=== PATIENT | female | born 1965 | race African-American/Black ===

== ENCOUNTER 2017-01-17 19:02 | Observation (INO) | payer BC ==
[2017-01-17] MEDS ORDERED: ASPIRIN 81 MG CHEWTAB ONE (19:19)
[2017-01-17] MEDS ORDERED: ASPIRIN 81 MG CHEWTAB PO ONE (19:22)
--- NOTE | 2017-01-17 19:40 | DR.GENAD ---
HPI - PCP Primary Care Physician: MARTY - HPI Comment HPI Comment: PAIN SUBSTERNAL PRESSURE NON RADIATING ASSOCIATED WITH SOB AND WEAKNESS WITH NAUSEA. INITIALLY INTERMITTENT PAIN. CONSTANT TODAY. OLD S/L NITROGLYCERINE AT HOME DID NOT HELP PAIN. HISTORY CAD. - Complaint/Symptoms Chief Complaint Doctors Comments: CHEST PAIN, SOB AND ELEVATED BP TIMES 2 DAYS. Chief Complaint:: CHEST PAIN AND SOB FOR 2 DAYS Self Treatment fo Chief Complaint: NITROGLYCERIN TABLET THIS MORNING 1130AM NO RELIEF - Nurses notes reviewed Nurses Notes Review: Yes - Source History Provided: Patient - Mode of Arrival Mode of Arrival: Ambulatory - Timing Onset of Chief Complaint: 01/16/17 Came on: Suddenly - Duration Duration: Intermittent Duration: Days - Severity Severity: Moderate PMH - PMH Past Medical History: Yes Past Medical History: Anxiety, Depression, Dyslipidemia, Hypertension, Seizures , Sleep Apnea Past Medical History Comment: GROWTH ON THYROID Past Surgical History: Yes Surgical History: Hysterectomy, Ortho Surgery - Family History History of Family Medical Conditions: Yes Family Medical History: Diabetes Mellitus, Cancer, Coronary Artery Disease, Hypertension - Social History Does patient currently use any type of tobacco product: No Have you used tobacco products in the last 12 months: No Type of Tobacco Use: Cigarettes How many years tobacco product used: 2 Does any household member use tobacco: No Alcohol Use: None Do you use any recreational Drugs:: No Lives With: Spouse Lives Where: Home - infectious screening In the last 2 months have you had wt loss of >10#?: NO Have you had fever, night sweats or hemotysis?: No Have you traveled outside the country in the last 6 months?: No Isolation: Standard ROS - Review of Systems Constitutional: Weakness, Fatigue. negative: Chills, Fever Eyes: No Symptoms Reported. negative: Eye Pain, Discharge ENTM: Nose Congestion. negative: Ear Pain, Nose Discharge, Throat Pain Respiratoy: Non-Productive Cough, Short of Breath. negative: Wheezing, Hemoptysis Cardiovascular: Chest Pain, Edema (ANKLES) Gastrointestinal/Abdominal: Nausea. negative: Abdominal Pain, Constipation, Diarrhea, Vomiting Genitourinary: No Symptoms Reported. negative: Dysuria, Frequency, Hematuria Neurological: Weakness, Dizziness. negative: Headache Musculoskeletal: Back Pain, Muscle Pain, Back Integumentary: No Symptoms Reported Hematologic/Lymphatic: No Symptoms Reported Endocrine: No Symptoms Reported All Other Systems: Reviewed and Negative PE - Vital Signs Vitals: Temperature 98.2 F Pulse Rate [Right Brachial] 62 Pulse Rate 85 Respiratory Rate 20 Blood Pressure [Right Arm] 239/112 Blood Pressure [Left Arm] 237/112 Blood Pressure 212/114 O2 Sat by Pulse Oximetry 98 - General Limitations: No Limitations General Appearance: Alert - Head Head Exam: Normal Inspection - Eyes Eye exam: Normal Appearance - ENT ENT Exam: Normal External Ear Exam External Ear Exam: Normal External Inspection TM/Canal Exam: Bilateral Normal Nose Exam: Normal Nose Exam Mouth Exam: Normal Inspection Throat Exam: Normal Inspection - Neck Neck Exam: Trachea Midline. negative: Tenderness, Meningismus, Lymphadenopathy - Chest Chest Inspection: Symmetric Chest Wall Rise - Respiratory Respiratory Exam: negative: Chest Wall Tenderness Respiratory Exam: Bilateral Rhonchi, Lower Rhonchi - Cardiovascular Cardiovascular Exam: Regular Rate, Normal Rhythm, Normal Heart Sounds - Abdominal Exam Abdominal Exam: Normal Bowel Sounds, Soft. negative: Tenderness - Extremities Extremities Exam: Edema (ANKLE) - Back Back Exam: Normal Inspection - Neurologic Neurological Exam: Alert, Oriented X3 - Psychiatric Psychiatric Exam: Anxious - Skin Skin Exam: Normal Color MDM - Additional Information Additional Information Obtained From: Family - Differential Diagnosis Differential Diagnosis: CHEST PAIN, DYSPNEA, CHF, NE, UNCONTROL HTN. Course - Treatment Treatment: SEE ORDERS. MEDS PER ORDERS. PAIN IMPROVE. - Reevaluation 1st: Improved - Consultation Consultation Comments: DISCUSS PATIENT WITH DR. DONALD. HE WILL ADMIT PATIENT. - Education/Counseling Education/Counseling: Patient, Family, Education Educated On: Treatment, Diagnosis ROR - Labs Reviewed Laboratory Results Reviewed?: Yes Result Diagrams: 01/18/17 05:46 01/18/17 05:46 Laboratory: WBC 9.1 X10^3/uL (3.6-10.0) 01/17/17 19:35 RBC 5.33 X10^6/uL (3.5-5.4) 01/17/17 19:35 Hgb 13.3 g/dL (12.0-16.0) 01/17/17 19:35 Hct 40.5 % (36.0-47.0) 01/17/17 19:35 MCV 75.9 fL (80.0-100.0) L 01/17/17 19:35 MCH 25.0 pg (27.0-34.0) L 01/17/17 19:35 MCHC 32.9 g/dL (33.0-35.0) L 01/17/17 19:35 RDW 14.2 % (11.6-16.5) 01/17/17 19:35 Plt Count 199 X10^3/uL (150.0-450.0) 01/17/17 19:35 Plt Count Comment Adequate (ADEQUATE) 01/17/17 19:35 MPV 9.9 fL (7.4-11.0) 01/17/17 19:35 Neut % 46.4 % (42.0-75.0) 01/17/17 19: Lymph % 41.5 % (21.0-51.0) 01/17/17 19:35 [place] % 8.4 % (0.0-13.0) 01/17/17 19:35 Eos % 2.9 % (0.9-2.9) 01/17/17 19:35 Baso % 0.8 % (0.2-1.0) 01/17/17 19:35 Neut # 4.2 x10^3/uL (2.2-4.8) 01/17/17 19:35 Lymph # 3.8 X10^3/uL (1.3-2.9) H 01/17/17 19:35 [place] # 0.8 x10^3/uL (0.3-0.8) 01/17/17 19:35 Eos # 0.3 x10^3/uL (0.0-0.2) H 01/17/17 19:35 Baso # 0.1 X10^3/uL (0.0-0.1) 01/17/17 19:35 Absolute Nucleated RBC 0.1 /100WBC 01/17/17 19:35 Plt Morphology Comment Normal (NORMAL) 01/17/17 19:35 RBC Morphology Abnormal (NORMAL) A 01/17/17 19:35 Hypochromasia Slight A 01/17/17 19:35 D-Dimer 142 ng/mL (0-400) 01/17/17 19:35 Sodium 143 mmol/L (136-145) 01/17/17 19:35 Corrected Sodium TNP 01/17/17 19:35 Potassium 3.5 mmol/L (3.5-5.1) 04/11/17 19:35 Chloride 106 mmol/L (98-107) 01/17/17 19:35 Carbon Dioxide 27.7 mmol/L (21-32) 01/17/17 19:35 BUN 12 mg/dL (7-18) 01/17/17 19:35 Creatinine 1.01 mg/dL (0.55-1.02) 01/17/17 19:35 Est GFR (MDRD) Af Amer > 60 (>60) 01/17/17 19:35 Est GFR (MDRD) Non-Af > 60 (>60) 01/17/17 19:35 Glucose 108 mg/dL (65-99) H 01/17/17 19:35 Calcium 9.5 mg/dL (8.5-10.1) 01/17/17 19:35 Corrected Calcium TNP 01/17/17 19:35 Total Bilirubin 0.50 mg/dL (0.2-1.0) 01/17/17 19:35 AST 20 Units/L (15-37) 01/17/17 19:35 ALT 24 Units/L (12-78) 01/17/17 19:35 Alkaline Phosphatase 99 Units/L (46-116) 01/17/17 19:35 Creatine Kinase 302 Units/L (26-192) H 01/17/17 19:35 CK-MB (CK-2) 2.7 ng/mL (0-4.0) 01/17/17 19:35 CK/CKMB % Calc 0.9 % (<4) 01/17/17 19:35 Troponin I < 0.02 ng/mL (0-1.5) 01/17/17 19:35 B-Natriuretic Peptide 126 pg/mL (0-79) H 01/17/17 19:35 Total Protein 8.5 g/dL (6.4-8.2) H 01/17/17 19:35 Albumin 3.8 g/dL (3.4-5.0) 01/17/17 19:35 Globulin 4.7 g/dL (2.5-4.5) H 01/17/17 19:35 Albumin/Globulin Ratio 0.8 Ratio (1.1-2.1) L 01/17/17 19:35 Specimen Type Clean catch urine 01/17/17 20:47 Urine Color Pale yellow (YELLOW) 01/17/17 20:47 Urine Appearance Slightly hazy (CLEAR) 01/17/17 20:47 Urine pH 7.0 (5.0 - 8.0) 01/17/17 20:47 Ur Specific [place] 1.010 (1.000-1.030) 01/17/17 20:47 Urine Protein 2+ (NEGATIVE) 01/17/17 20:47 Urine Glucose (UA) Negative (NEGATIVE) 01/17/17 20:47 Urine Ketones Negative (NEGATIVE) 01/17/17 20:47 Urine Occult Blood Negative (NEGATIVE) 01/17/17 20:47 Urine Nitrite Negative (NEGATIVE) 01/17/17 20:47 Urine Bilirubin Negative (NEGATIVE) 01/17/17 20:47 Urine Urobilinogen Normal (NORMAL) 01/17/17 20:47 Ur Leukocyte Esterase 2+ (NEGATIVE) 01/17/17 20:47 Urine RBC None seen /HPF (NEGATIVE) 01/17/17 20:47 Urine WBC 8-10 /HPF (NEGATIVE) 01/17/17 20:47 Ur Squamous Epith Cells Rare /HPF (NEGATIVE) 01/17/17 20:47 Ur Renal Epithelial Cell Rare /HPF (NEGATIVE) 01/17/17 20:47 Urine Bacteria 1+ /HPF (NEGATIVE) 01/17/17 20:47 Ur Culture Indicated? Yes/culture set up 01/17/17 20:47 - XRAY XRAY Interpreted by: Radiologist XRAY Findings: REPORT DISCUSS WITH PATIENT. - EKG Rhythm: NSR (EKG NOTED) - Diagnosis Discharge Problem: Uncontrolled hypertension Chest pain Qualifiers: Chest pain type: precordial pain Qualified Code(s): R07.2 - Precordial pain Dyspnea Qualifiers: Dyspnea type: shortness of breath Qualified Code(s): R06.02 - Shortness of breath - Discharge Plan Disposition: ADMITTED INPATIENT Condition: Stable - Follow ups/Referrals - Instructions
[2017-01-17 19:48] LABS: BASOPHILS # (AUTO) 0.1 X10^3/uL (0.0-0.1); BASOPHILS % (AUTO) 0.8 % (0.2-1.0); EOSINOPHILS # (AUTO) 0.3 x10^3/uL (0.0-0.2); EOSINOPHILS % (AUTO) 2.9 % (0.9-2.9); HEMATOCRIT 40.5 % (36.0-47.0); HEMOGLOBIN 13.3 g/dL (12.0-16.0); LYMPHOCYTES # (AUTO) 3.8 X10^3/uL (1.3-2.9); LYMPHOCYTES % (AUTO) 41.5 % (21.0-51.0); MEAN CORPUSCULAR HGB CONC 32.9 g/dL (33.0-35.0); MEAN CORPUSCULAR VOLUME 75.9 fL (80.0-100.0); MEAN PLATELET VOLUME 9.9 fL (7.4-11.0); MONOCYTES # (AUTO) 0.8 x10^3/uL (0.3-0.8); MONOCYTES % (AUTO) 8.4 % (0.0-13.0); NEUTROPHILS # (AUTO) 4.2 x10^3/uL (2.2-4.8); NEUTROPHILS % (AUTO) 46.4 % (42.0-75.0); PLATELET COUNT 199 X10^3/uL (150.0-450.0); RED BLOOD COUNT 5.33 X10^6/uL (3.5-5.4); RED CELL DISTRIBUTION WIDTH 14.2 % (11.6-16.5); WHITE BLOOD COUNT 9.1 X10^3/uL (3.6-10.0)
[2017-01-17 20:04] LABS: BLOOD UREA NITROGEN 12 mg/dL (7-18); CALCIUM 9.5 mg/dL (8.5-10.1); CARBON DIOXIDE 27.7 mmol/L (21-32); CHLORIDE 106 mmol/L (98-107); CREATININE 1.01 mg/dL (0.55-1.02); GLUCOSE 108 mg/dL (65-99); SODIUM 143 mmol/L (136-145); TROPONIN I < 0.02 ng/mL (0-1.5); eGFR BLACK RACES > 60 (>60); eGFR NON BLACK RACES > 60 (>60)
--- NOTE | 2017-01-17 20:07 | RAD ---
HISTORY: Chest pain Study: Portable chest Comparison: None Findings: The trachea is midline. The cardiac silhouette is mildly enlarged.. The lungs are clear without fo samantha infiltrate or effusion. The bony thorax is unremarkable. IMPRESSION: 1. Mild cardiomegaly, no definite acute disease. Reported By:
[2017-01-17 20:09] LABS: ALANINE AMINOTRANSFERASE 24 Units/L (12-78); ALBUMIN 3.8 g/dL (3.4-5.0); ALKALINE PHOSPHATASE 99 Units/L (46-116); ASPARTATE AMINO TRANSFERASE 20 Units/L (15-37); CKMB % 0.9 % (<4); CREATINE KINASE 302 Units/L (26-192); CREATINE KINASE MB 2.7 ng/mL (0-4.0); TOTAL PROTEIN 8.5 g/dL (6.4-8.2)
[2017-01-17 20:15] LABS: B-TYPE NATRIURETIC PEPTIDE 126 pg/mL (0-79)
[2017-01-17 20:17] LABS: HYPOCHROMASIA SLIGHT; PLATELET MORPHOLOGY COMMENT NORMAL (NORMAL)
[2017-01-17] MEDS ORDERED: MORPHINE SULFATE INJ 4 MG IVP ONE (20:26)
[2017-01-17] MEDS ORDERED: ZOFRAN INJ 4 MG VIAL IVP ONE (20:26)
[2017-01-17] MEDS ORDERED: NIFEDIPINE CAP 10 MG PO ONE (20:26)
[2017-01-17] MEDS ORDERED: ZOFRAN INJ 4 MG VIAL ONE (20:27)
[2017-01-17] MEDS ORDERED: MORPHINE SULFATE INJ 4 MG ONE (20:27)
[2017-01-17 21:10] LABS: BILIRUBIN,URINE NEGATIVE (NEGATIVE); BLOOD/HEMOGLOBIN,URINE NEGATIVE (NEGATIVE); GLUCOSE, URINE NEGATIVE (NEGATIVE); KETONES,URINE NEGATIVE (NEGATIVE); LEUKOCYTE ESTERASE ,URINE 2+ (NEGATIVE); NITRITES,URINE NEGATIVE (NEGATIVE); PROTEIN,URINE 2+ (NEGATIVE); UROBILINOGEN,URINE NORMAL (NORMAL)
[2017-01-17 21:18] LABS: COLOR,URINE PALE YELLOW (YELLOW)
[2017-01-17 21:19] LABS: APPEARANCE,URINE SLIGHTLY HAZY (CLEAR); BACTERIA,URINE 1+ /HPF (NEGATIVE); RBC,URINE NONE SEEN /HPF (NEGATIVE); RENAL EPITHELIAL CELLS,URINE RARE /HPF (NEGATIVE); SQUAMOUS EPITHELIAL CELL,UR RARE /HPF (NEGATIVE)
[2017-01-17] MEDS ORDERED: XANAX PO ONE (21:49)
[2017-01-17] MEDS ORDERED: CATAPRES TAB 0.2 MG PO ONE (21:49)
[2017-01-17] MEDS ORDERED: CATAPRES TAB 0.2 MG ONE (22:03)
[2017-01-17] MEDS ORDERED: XANAX ONE (22:08)
[2017-01-17] MEDS: NS 1000 ML 1,000 ML IV SCH (22:10)
[2017-01-17 23:46] VITALS: BMI 36.1
[2017-01-18 02:06] LABS: CKMB % 0.9 % (<4); CREATINE KINASE 229 Units/L (26-192); TROPONIN I < 0.02 ng/mL (0-1.5)
[2017-01-18 06:47] LABS: BASOPHILS # (AUTO) 0.1 X10^3/uL (0.0-0.1); BASOPHILS % (AUTO) 0.7 % (0.2-1.0); EOSINOPHILS # (AUTO) 0.3 x10^3/uL (0.0-0.2); EOSINOPHILS % (AUTO) 3.5 % (0.9-2.9); HEMATOCRIT 37.4 % (36.0-47.0); HEMOGLOBIN 12.2 g/dL (12.0-16.0); LYMPHOCYTES # (AUTO) 3.6 X10^3/uL (1.3-2.9); LYMPHOCYTES % (AUTO) 47.3 % (21.0-51.0); MEAN CORPUSCULAR HEMOGLOBIN 24.8 pg (27.0-34.0); MEAN CORPUSCULAR HGB CONC 32.6 g/dL (33.0-35.0); MEAN CORPUSCULAR VOLUME 76.1 fL (80.0-100.0); MEAN PLATELET VOLUME 10.6 fL (7.4-11.0); MONOCYTES # (AUTO) 0.8 x10^3/uL (0.3-0.8); MONOCYTES % (AUTO) 10.8 % (0.0-13.0); NEUTROPHILS # (AUTO) 2.9 x10^3/uL (2.2-4.8); NEUTROPHILS % (AUTO) 37.7 % (42.0-75.0); PLATELET COUNT 177 X10^3/uL (150.0-450.0); RED BLOOD COUNT 4.92 X10^6/uL (3.5-5.4); RED CELL DISTRIBUTION WIDTH 14.4 % (11.6-16.5); WHITE BLOOD COUNT 7.7 X10^3/uL (3.6-10.0)
[2017-01-18 07:14] LABS: ALANINE AMINOTRANSFERASE 22 Units/L (12-78); ALBUMIN 3.1 g/dL (3.4-5.0); ALKALINE PHOSPHATASE 81 Units/L (46-116); ASPARTATE AMINO TRANSFERASE 19 Units/L (15-37); BLOOD UREA NITROGEN 14 mg/dL (7-18); CALCIUM 8.8 mg/dL (8.5-10.1); CARBON DIOXIDE 26.4 mmol/L (21-32); CHLORIDE 107 mmol/L (98-107); CHOL/HDL RATIO 5.5 (0.0-5.0); CHOLESTEROL 186 mg/dL (0-200); COR CA(FOR HYPOALB) 9.5 mg/dL (8.5-10.1); COR NA(FOR HYPERGLY) 143 mmol/L (136-145); GLUCOSE 125 mg/dL (65-99); HDL CHOLESTEROL 34 mg/dL (40-60); SODIUM 142 mmol/L (136-145); TOTAL PROTEIN 7.2 g/dL (6.4-8.2); TRIGLYCERIDES 129 mg/dL (0-150); eGFR BLACK RACES > 60 (>60); eGFR NON BLACK RACES > 60 (>60)
[2017-01-18 07:16] LABS: CREATINE KINASE 183 Units/L (26-192); TROPONIN I < 0.02 ng/mL (0-1.5)
[2017-01-18 07:20] LABS: PLATELET MORPHOLOGY COMMENT NORMAL (NORMAL)
[2017-01-18 07:21] LABS: HYPOCHROMASIA SLIGHT
[2017-01-18 07:42] LABS: CKMB % 0.9 % (<4); CREATINE KINASE MB 1.6 ng/mL (0-4.0)
[2017-01-18] MEDS: TOPROL XL PO SCH (09:58)
[2017-01-18] MEDS ORDERED: NORCO 10/325 TAB PO PRN (10:07)
[2017-01-18] MEDS ORDERED: [UNRECOGNIZED DRUG - OTHER] PO PRN (10:07)
[2017-01-18] MEDS ORDERED: XANAX PO PRN (10:35)
[2017-01-18 14:28] LABS: CKMB % 0.8 % (<4); CREATINE KINASE 157 Units/L (26-192); CREATINE KINASE MB 1.2 ng/mL (0-4.0); TROPONIN I < 0.02 ng/mL (0-1.5)
--- NOTE | 2017-01-18 16:09 | DR.H&P ---
H&P - History & Physical for Day of: H&P Date: 01/17/17 - Chief Complaint Chief Complaint: CHEST PAIN, CHEST PRESSURE - Allergies Allergies/Adverse Reactions: Allergies Allergy/AdvReac Type Severity Reaction Status Date / Time Phenytoin [From Dilantin] Allergy Verified 01/17/17 19:20 - History of Present Illness History of Present Illness: THIS IS A 51 YEAR OLD FEMALE, WHO IS A PATIENT OF DR. LEONARD, [place], [place]. SHE PRESENTS TO THE EMERGENCY ROOM WITH COMPLAINTS OF CHEST PAIN AND SUBSTERNAL CHEST PRESSURE, NON-RADIATING, WITH ASSOCIATED SHORTNESS OF BREATH AND WEAKNESS WITH NAUSEA. PATIENT REPORTS CHEST PAIN WAS INITIALLY INTERMITTENT; HOWEVER, NOW IT IS CONSTANT. PATIENT STATES SHE HAD TAKEN NITROGLYCERIN AT HOME WITH NO IMPROVEMENT. PATIENT REPORTS HISTORY OF CAD. SHE STATES HER BLOOD PRESSURE HAS BEEN HIGH FOR TWO DAYS. SHE RATES CHEST PAIN A 6 ON A 1-TO-10 PAIN SCALE. BLOOD PRESSURE IS 212/114, PULSE 85. PATIENT IS NOTED WITH ANXIETY ON ARRIVAL. LABS AND CHEST XRAY OBTAINED IN ER. CBC WNL. CMP WNL EXCEPT: GLUCOSE 108, TOT PROTEIN 5.8. CARDIAC ENZYMES WNL EXCEPT: CREAT KINASE 302. URINALYSIS ABNORMALS: PROTEIN 2+, LEUKOCYTE ESTERASE 2+, WBC 8-10, BACTERIA 1+; CULTURE PENDING. CHEST XRAY REPORTS MILD CARDIOMEGALY, NO DEFINITE ACUTE DISEASE. EKG: SINUS RHYTHM, RATE 75. PATIENT RECEIVED ASPIRIN, CLONIDINE, MORPHINE, PROCARDIA, XANAX, AND ZOFRAN IN THE EMERGENCY ROOM. BLOOD PRESSURE IMPROVED TO 167/78, PULSE 58. WE WILL ADMIT PATIENT FOR FURTHER TREATMENT AND EVALUATION. WE WILL MONITOR ON TELEMETRY AND OBTAIN SERIAL CARDIAC ENZYMES AND EKG'S. - Past Medical History Past Medical History: Anxiety, Arthritis, Depression, Dyslipidemia, GERD, Hypertension, Seizures, Sleep Apnea Additional Medical History: Irritable Bowel Syndrome, Urinary Tract Infections, Back Pain, Degenerative Disc Disease, Growth on Thyroid - Past Surgical History Surgical History: Hysterectomy, Ortho Surgery Additional Surgical History: Carpal tunnel surgery on right twice, Two epidurals in back for back pain, Surgery for ectopic - Family History Family Medical History: Diabetes Mellitus, Cancer, [place], Coronary Artery Disease, Sudden Cardiac , Hypertension - Social History Does patient currently use any type of tobacco product: No Have you used tobacco products in the last 12 months: No Type of Tobacco Use: Cigarettes How many years tobacco product used: 2 Does any household member use tobacco: No Alcohol Use: None Drug Use: None - Medications Home Medications: Alprazolam 1 tab PO BID PRN 01/18/17 [History Confirmed 01/18/17] Amlodipine Besylate [NORVASC 5 MG *] 1 tab PO DAILY 01/18/17 [History Confirmed 01/18/17] Carisoprodol [SOMA 350 MG *] 1 tab PO BID 01/18/17 [History Confirmed 01/18/17] Hydrocodone-Acet 10/325 mg [NORCO 10 MG/325 MG *] 1 tab PO TID PRN 01/18/17 [ History Confirmed 01/18/17] Linaclotide [Linzess] 1 cap PO DAILY 01/18/17 [History Confirmed 01/18/17] - Review of Systems Constitutional: Weakness, Malaise Eyes: No Symptoms Reported. denies: Pain, Vision Change, Conjunctivae Inflammation, Eyelid Inflammation, Redness ENT: No Symptoms Reported. denies: Ear Pain, Ear Discharge, Nose Pain, Nose Discharge, Nose Congestion, Mouth Pain, Mouth Swelling, Throat Pain, Throat Swelling Respiratory: No Symptoms Reported. denies: Cough, Shortness of Breath, Hemoptysis, SOB with Excertion, Pleuritic Pain, Sputum, Wheezing Cardiovascular: Chest Pain, Edema. denies: Palpitations, Orthopnea, Paroxysmal Noc. Dyspnea, Light Headedness Gastrointestinal: Nausea. denies: Vomiting, Abdominal Pain, Diarrhea, Constipation, Melena, Hematochezia Genitourinary: No Symptoms Reported. denies: Dysuria, Frequency, Incontinence, Hematuria, Retention Musculoskeletal: No Symptoms Reported. denies: Shoulder Pain, Arm Pain, Back Pain, Hand Pain, Leg Pain, Foot Pain, Neck Pain Skin: No Symptoms Reported. denies: Rash, Lesions, Jaundice, Bruising, Wound, Ecchymosis Neurological: No Symptoms Reported. denies: Weakness, Numbness, Incoordination , Change in Speech, Confusion, Seizures - Physical Exam Vital Signs: Temperature 97.6 F Pulse Rate [Left Brachial] 55 Pulse Rate [Right Brachial] 54 Respiratory Rate 20 Blood Pressure [Right Arm] 127/75 Blood Pressure [Left Arm] 134/75 O2 Sat by Pulse Oximetry 99 Oriented: Normal, Time, Person, Place Eyes: Normal. negative: Blurred Vision, Diplopia, Discharge, Pain, Redness, Photophobia Ear: Normal. negative: Swelling, Ecchymosis, Hemotypanum, Abrasion, Laceration Nose: Normal. negative: Injected, Discharge, Blood Throat: Normal. negative: Tonsillar Hypertrophy, Red, Exudate Respiratory: Clear Throughout Cardiovascular: Normal. negative: Murmur, Edema : Frequency, Discharge. negative: Dysuria, Hematuria Auscultation: Bowel Sounds: Decreased. negative: Bruit Palpation: Normal. negative: Spleen Enlarged, Liver Enlarged, Mass Pulsatile Tenderness: Normal. negative: Rebound, Guarding, Rigidity Skin: Normal. negative: Diaphoresis, Wound, Bruising, Ecchymosis Musculoskeletal: Normal Psychiatric: Normal Mood Description: Calm, Appropriate Affect: Normal Speech Pattern: Clear, Appropriate - Assessment/Plan (1) Chest pain Qualifiers: Chest pain type: precordial pain Ischemic chest pain type: I Qualified Code(s): R07.2 - Precordial pain Status: Acute Plan: ADMIT PATIENT, START IV FLUIDS, MONITOR ON TELEMETRY, SERIAL CARDIAC ENZYMES AND EKG'S, SUPPLEMENTAL OXYGEN. (2) Dyspnea Qualifiers: Dyspnea type: shortness of breath Qualified Code(s): R06.02 - Shortness of breath Status: Acute Plan: ABOVE. (3) Uncontrolled hypertension Status: Acute Plan: CONTINUE TO MONITOR. (4) Hypertension Qualifiers: Hypertension type: essential hypertension Qualified Code(s): I10 - Essential (primary) hypertension Status: Chronic (5) Hyperlipidemia Qualifiers: Hyperlipidemia type: mixed hyperlipidemia Qualified Code(s): E78.2 - Mixed hyperlipidemia Status: Chronic (6) GERD (gastroesophageal reflux disease) Qualifiers: Esophagitis presence: esophagitis presence not specified Qualified Code(s) : K21.9 - Gastro-esophageal reflux disease without esophagitis Status: Chronic (7) Degenerative disc disease Qualifiers: Spinal region: S Mid-cervical spinal level: unspecified Qualified Code(s) : M50.320 - Other cervical disc degeneration, mid-cervical region, unspecified level Status: Chronic (8) Chronic back pain Qualifiers: Back pain location: low back pain Back pain laterality: bilateral Sciatica presence: without sciatica Sciatica laterality: S Qualified Code(s) : M54.5 - Low back pain; G89.29 - Other chronic pain Status: Chronic
[2017-01-18] MEDS: NS 1000 ML 1,000 ML IV SCH (16:20)
--- NOTE | 2017-01-18 16:53 | PCM.PROG ---
Progress Note - Progress Note for Day of Date: 01/18/17 - Subjective Subjective: PATIENT CONTINUES TO REPORT CHEST PRESSURE THIS MORNING. BLOOD PRESSURE IS 122/84, PULSE 53. PATIENT IS MILDLY SHORT OF BREATH AT REST. ON AUSCULTATION, LUNGS CLEAR. CBC WNL. CMP WNL EXCEPT: GLUCOSE 125, ALBUMIN 3.1. FASTING LIPID ABNORMALS: LDL CHOL 126, HDL CHOL 34, CHOL/HDL RATIO 5.5. EKG: SINUS RHYTHM, RATE 53. WE WILL CONTINUE TO MONITOR ON TELEMETRY AND START TOPROL XL FOR BLOOD PRESSURE. WE WILL CONTINUE TO MONITOR BLOOD PRESSURE. WE WILL PLAN FOR AN OUTPATIENT STRESS TEST AND ECHO UPON DISCHARGE. - Past Medical Family Social History Past Med/Fam/Surg Hx: No changes since H&P Allergies: Allergies Phenytoin [From Dilantin] Allergy (Verified 01/17/17 19:20) - Review of Systems ROS: No change since H&P - Vital Signs and I&O's Vital Signs: Temperature 97.6 F Pulse Rate [Left Brachial] 55 Pulse Rate [Right Brachial] 54 Respiratory Rate 20 Blood Pressure [Right Arm] 127/75 Blood Pressure [Left Arm] 134/75 O2 Sat by Pulse Oximetry 99 Intake and Output: Intake & Output 01/16/17 01/17/17 01/18/17 01/19/17 11:59 11:59 11:59 11:59 Intake Total 0 736 Balance 0 736 - Physical Exam Oriented: Normal, Time, Person, Place Eyes: Normal. negative: Blurred Vision, Diplopia, Discharge, Pain, Redness, Photophobia Ear: Normal. negative: Swelling, Ecchymosis, Hemotypanum, Abrasion, Laceration Nose: Normal. negative: Injected, Discharge, Blood Throat: Normal. negative: Tonsillar Hypertrophy, Red, Exudate Respiratory: Normal Cardiovascular: Normal. negative: Murmur, Edema : Frequency, Discharge. negative: Dysuria, Hematuria Auscultation: Bowel Sounds: Decreased. negative: Bruit Palpation: Normal. negative: Spleen Enlarged, Liver Enlarged, Mass Pulsatile Tenderness: Normal. negative: Rebound, Guarding, Rigidity Skin: Normal. negative: Diaphoresis, Wound, Bruising, Ecchymosis Musculoskeletal: Normal Psychiatric: Normal Mood Description: Calm, Appropriate Affect: Normal Speech Pattern: Clear, Appropriate - Laboratory and Diagnostics Result Diagrams: 01/18/17 05:46 01/18/17 05:46 Labs: Laboratory WBC 7.7 X10^3/uL (3.6-10.0) 01/18/17 05:46 RBC 4.92 X10^6/uL (3.5-5.4) 01/18/17 05:46 Hgb 12.2 g/dL (12.0-16.0) 01/18/17 05:46 Hct 37.4 % (36.0-47.0) 01/18/17 05:46 MCV 76.1 fL (80.0-100.0) L 01/18/17 05:46 MCH 24.8 pg (27.0-34.0) L 01/18/17 05:46 MCHC 32.6 g/dL (33.0-35.0) L 01/18/17 05:46 RDW 14.4 % (11.6-16.5) 01/18/17 05:46 Plt Count 177 X10^3/uL (150.0-450.0) 01/18/17 05:46 Plt Count Comment Adequate (ADEQUATE) 01/18/17 05:46 MPV 10.6 fL (7.4-11.0) 01/18/17 05:46 Neut % 37.7 % (42.0-75.0) L 01/18/17 05:46 Lymph % 47.3 % (21.0-51.0) 01/18/17 05:46 [place] % 10.8 % (0.0-13.0) 01/18/17 05:46 Eos % 3.5 % (0.9-2.9) H 01/18/17 05:46 Baso % 0.7 % (0.2-1.0) 01/18/17 05:46 Neut # 2.9 x10^3/uL (2.2-4.8) 01/18/17 05:46 Lymph # 3.6 X10^3/uL (1.3-2.9) H 01/18/17 05:46 [place] # 0.8 x10^3/uL (0.3-0.8) 01/18/17 05:46 Eos # 0.3 x10^3/uL (0.0-0.2) H 01/18/17 05:46 Baso # 0.1 X10^3/uL (0.0-0.1) 01/18/17 05:46 Absolute Nucleated RBC 0.2 /100WBC 01/18/17 05:46 Plt Morphology Comment Normal (NORMAL) 01/18/17 05:46 RBC Morphology Abnormal (NORMAL) A 01/18/17 05:46 Hypochromasia Slight A 01/18/17 05:46 D-Dimer 142 ng/mL (0-400) 01/17/17 19:35 Sodium 142 mmol/L (136-145) 01/18/17 05:46 Corrected Sodium 143 mmol/L (136-145) 01/18/17 05:46 Potassium 3.9 mmol/L (3.5-5.1) 01/18/17 05:46 Chloride 107 mmol/L (98-107) 01/18/17 05:46 Carbon Dioxide 26.4 mmol/L (21-32) 01/18/17 05:46 BUN 14 mg/dL (7-18) 01/18/17 05:46 Creatinine 0.90 mg/dL (0.55-1.02) 01/18/17 05:46 Est GFR (MDRD) Af Amer > 60 (>60) 01/18/17 05:46 Est GFR (MDRD) Non-Af > 60 (>60) 01/18/17 05:46 Glucose 125 mg/dL (65-99) H 01/18/17 05:46 Calcium 8.8 mg/dL (8.5-10.1) 01/18/17 05:46 Corrected Calcium 9.5 mg/dL (8.5-10.1) 01/18/17 05:46 Total Bilirubin 0.50 mg/dL (0.2-1.0) 01/18/17 05:46 AST 19 Units/L (15-37) 01/18/17 05:46 ALT 22 Units/L (12-78) 01/18/17 05:46 Alkaline Phosphatase 81 Units/L (46-116) 01/18/17 05:46 Creatine Kinase 157 Units/L (26-192) 01/18/17 13:24 CK-MB (CK-2) 1.2 ng/mL (0-4.0) 01/18/17 13:24 CK/CKMB % Calc 0.8 % (<4) 01/18/17 13:24 Troponin I < 0.02 ng/mL (0-1.5) 01/18/17 13:24 B-Natriuretic Peptide 126 pg/mL (0-79) H 01/17/17 19:35 Total Protein 7.2 g/dL (6.4-8.2) 01/18/17 05:46 Albumin 3.1 g/dL (3.4-5.0) L 01/18/17 05:46 Globulin 4.1 g/dL (2.5-4.5) 01/18/17 05:46 Albumin/Globulin Ratio 0.8 Ratio (1.1-2.1) L 01/18/17 05:46 Triglycerides 129 mg/dL (0-150) 01/18/17 05:46 Cholesterol 186 mg/dL (0-200) 01/18/17 05:46 LDL Cholesterol, Calc 126 mg/dL (0-100) H 01/18/17 05:46 HDL Cholesterol 34 mg/dL (40-60) L 01/18/17 05:46 Cholesterol/HDL Ratio 5.5 (0.0-5.0) H 01/18/17 05:46 Specimen Type Clean catch urine 01/17/17 20:47 Urine Color Pale yellow (YELLOW) 01/17/17 20:47 Urine Appearance Slightly hazy (CLEAR) 01/17/17 20:47 Urine pH 7.0 (5.0 - 8.0) 01/17/17 20:47 Ur Specific [place] 1.010 (1.000-1.030) 01/17/17 20:47 Urine Protein 2+ (NEGATIVE) 01/17/17 20:47 Urine Glucose (UA) Negative (NEGATIVE) 01/17/17 20:47 Urine Ketones Negative (NEGATIVE) 01/17/17 20:47 Urine Occult Blood Negative (NEGATIVE) 01/17/17 20:47 Urine Nitrite Negative (NEGATIVE) 01/17/17 20:47 Urine Bilirubin Negative (NEGATIVE) 01/17/17 20:47 Urine Urobilinogen Normal (NORMAL) 01/17/17 20:47 Ur Leukocyte Esterase 2+ (NEGATIVE) 01/17/17 20:47 Urine RBC None seen /HPF (NEGATIVE) 01/17/17 20:47 Urine WBC 8-10 /HPF (NEGATIVE) 01/17/17 20:47 Ur Squamous Epith Cells Rare /HPF (NEGATIVE) 01/17/17 20:47 Ur Renal Epithelial Cell Rare /HPF (NEGATIVE) 01/17/17 20:47 Urine Bacteria 1+ /HPF (NEGATIVE) 01/17/17 20:47 Ur Culture Indicated? Yes/culture set up 01/17/17 20:47 - Plan (1) Chest pain Status: Acute Qualifiers: Chest pain type: precordial pain Ischemic chest pain type: I Qualified Code(s): R07.2 - Precordial pain Plan: CONTINUE IV FLUIDS, MONITOR ON TELEMETRY, SUPPLEMENTAL OXYGEN. (2) Dyspnea Status: Acute Qualifiers: Dyspnea type: shortness of breath Qualified Code(s): R06.02 - Shortness of breath Plan: ABOVE. (3) Uncontrolled hypertension Status: Acute Plan: START TOPROL X, CONTINUE TO MONITOR. (4) Hypertension Status: Chronic Qualifiers: Hypertension type: essential hypertension Qualified Code(s): I10 - Essential (primary) hypertension (5) Hyperlipidemia Status: Chronic Qualifiers: Hyperlipidemia type: mixed hyperlipidemia Qualified Code(s): E78.2 - Mixed hyperlipidemia (6) GERD (gastroesophageal reflux disease) Status: Chronic Qualifiers: Esophagitis presence: esophagitis presence not specified Qualified Code(s) : K21.9 - Gastro-esophageal reflux disease without esophagitis (7) Degenerative disc disease Status: Chronic Qualifiers: Spinal region: S Mid-cervical spinal level: unspecified Qualified Code(s) : M50.320 - Other cervical disc degeneration, mid-cervical region, unspecified level (8) Chronic back pain Status: Chronic Qualifiers: Back pain location: low back pain Back pain laterality: bilateral Sciatica presence: without sciatica Sciatica laterality: S Qualified Code(s) : M54.5 - Low back pain; G89.29 - Other chronic pain
[2017-01-19 05:03] LABS: BASOPHILS % (AUTO) 0.7 % (0.2-1.0); EOSINOPHILS # (AUTO) 0.2 x10^3/uL (0.0-0.2); EOSINOPHILS % (AUTO) 3.3 % (0.9-2.9); HEMOGLOBIN 12.2 g/dL (12.0-16.0); LYMPHOCYTES # (AUTO) 3.4 X10^3/uL (1.3-2.9); LYMPHOCYTES % (AUTO) 46.8 % (21.0-51.0); MEAN CORPUSCULAR HEMOGLOBIN 25.1 pg (27.0-34.0); MEAN CORPUSCULAR HGB CONC 33.1 g/dL (33.0-35.0); MONOCYTES # (AUTO) 0.6 x10^3/uL (0.3-0.8); MONOCYTES % (AUTO) 8.2 % (0.0-13.0); PLATELET COUNT 168 X10^3/uL (150.0-450.0); RED BLOOD COUNT 4.86 X10^6/uL (3.5-5.4); RED CELL DISTRIBUTION WIDTH 14.4 % (11.6-16.5); WHITE BLOOD COUNT 7.2 X10^3/uL (3.6-10.0)
[2017-01-19 05:18] LABS: ALANINE AMINOTRANSFERASE 19 Units/L (12-78); ALBUMIN 2.9 g/dL (3.4-5.0); ALKALINE PHOSPHATASE 83 Units/L (46-116); ASPARTATE AMINO TRANSFERASE 16 Units/L (15-37); BLOOD UREA NITROGEN 12 mg/dL (7-18); CALCIUM 8.8 mg/dL (8.5-10.1); CARBON DIOXIDE 25.5 mmol/L (21-32); CHLORIDE 107 mmol/L (98-107); COR CA(FOR HYPOALB) 9.7 mg/dL (8.5-10.1); COR NA(FOR HYPERGLY) 144 mmol/L (136-145); CREATININE 0.85 mg/dL (0.55-1.02); GLUCOSE 164 mg/dL (65-99); SODIUM 142 mmol/L (136-145); eGFR BLACK RACES > 60 (>60); eGFR NON BLACK RACES > 60 (>60)
[2017-01-19 05:53] LABS: HYPOCHROMASIA SLIGHT; PLATELET MORPHOLOGY COMMENT NORMAL (NORMAL)
[2017-01-19 08:50] VITALS: BP 165/90
[2017-01-19] MEDS: TOPROL XL PO SCH (09:31)
== END 2017-01-19 11:30 | disposition home or self-care (01) ==
LOC: ER 19:24 → OBS 21:22
PROVIDERS: ADMIT Internal Medicine; ATTEND Internal Medicine
DX: R07.89 Other chest pain (principal); I10 Essential (primary) hypertension; E78.2 Mixed hyperlipidemia; R94.31 Abnormal electrocardiogram [ECG] [EKG]; R53.1 Weakness; I51.7 Cardiomegaly; F41.8 Other specified anxiety disorders; K21.9 Gastro-esophageal reflux disease without esophagitis; M50.320 Other cervical disc degeneration, mid-cervical region, unspecified level; M54.5 Low back pain; G89.29 Other chronic pain; N39.0 Urinary tract infection, site not specified
CPT/HCPCS: 36415; 71010; 80053; 80061; 81001; 82550; 82553; 83880; 84484; 85025; 85378; 87086; 93005; 93010; 94760; 96365; 96374; 96375; 99284; A4222; G0378; J2270; J2405